=== PATIENT | male | born 1995 | race Caucasian/White ===

== ENCOUNTER → 2022-09-30 | Emergency (ER) | payer MEDICAID, OTHER ==
[~2022-09-30] VITALS: Ht 188 cm; Wt 84.0 kg
[~2022-09-30] MED LIST: AUG875T PO; IBUP-1456 PO
[2022-09-30 15:49] VITALS: BP 126/78
== END | disposition left against medical advice (07) ==
LOC: ER 15:19 → EDBD 15:19
DX: S00.81XA Abrasion of other part of head, initial encounter (principal); Z53.21 Procedure and treatment not carried out due to patient leaving prior to being seen by health care provider; V89.2XXA Person injured in unspecified motor-vehicle accident, traffic, initial encounter; Y93.89 Activity, other specified; Y92.89 Other specified places as the place of occurrence of the external cause; Y99.8 Other external cause status

== ENCOUNTER 2022-10-01 08:17 | Emergency (ER) | payer MEDICAID, OTHER ==
[~2022-10-01] VITALS: Ht 188 cm; Wt 85.0 kg
[2022-10-01 09:06] VITALS: BP 129/78
[2022-10-01] MEDS ORDERED: IBUPROFEN 800 MG TAB PO ONE (09:30)
[2022-10-01] MEDS ORDERED: IBUP-1456 PO (10:06)
[2022-10-02] MEDS ORDERED: AUG875T PO (02:04)
== END 2022-10-01 10:11 | disposition home or self-care (01) ==
LOC: ER 08:17
DX: S80.11XA Contusion of right lower leg, initial encounter (principal); Z88.1 Allergy status to other antibiotic agents; V43.52XA Car driver injured in collision with other type car in traffic accident, initial encounter; Y93.89 Activity, other specified; Y92.89 Other specified places as the place of occurrence of the external cause; Y99.8 Other external cause status
CPT/HCPCS: 73590

== ENCOUNTER 2022-10-03 07:31 | Emergency (ER) | payer MEDICAID, OTHER ==
[~2022-10-03] VITALS: Ht 188 cm; Wt 85.2 kg
[2022-10-03 07:38] VITALS: BP 114/60
[2022-10-03] MEDS ORDERED: KETOROLAC TROMETH 60MG/2ML VIAL IM ONE (08:15)
== END 2022-10-03 08:49 | disposition home or self-care (01) ==
LOC: ER 07:31
DX: S02.40CD Maxillary fracture, right side, subsequent encounter for fracture with routine healing (principal); M79.661 Pain in right lower leg; F41.9 Anxiety disorder, unspecified; F32.9 Major depressive disorder, single episode, unspecified; F17.210 Nicotine dependence, cigarettes, uncomplicated; F12.10 Cannabis abuse, uncomplicated; F15.10 Other stimulant abuse, uncomplicated; Z88.1 Allergy status to other antibiotic agents; V43.52XD Car driver injured in collision with other type car in traffic accident, subsequent encounter
CPT/HCPCS: 96372; 99283; J1885